=== PATIENT | female | born 1950 | race Caucasian/White ===

== ENCOUNTER 2022-06-04 14:54 | Outpatient (CLI) | payer MEDICARE, OTHER | END 2022-06-04 14:55 | disposition home or self-care (01) | LOC: BICRAD 14:54 | PROVIDERS: ATTEND Nurse Practitioner Family | DX: M25.551 Pain in right hip (principal); M16.11 Unilateral primary osteoarthritis, right hip ==

== ENCOUNTER 2022-08-13 14:59 | Outpatient (CLI) | payer MEDICARE, OTHER | END 2022-08-13 15:00 | disposition home or self-care (01) | LOC: BICRAD 14:59 | PROVIDERS: ATTEND Nurse Practitioner Family | DX: M79.641 Pain in right hand (principal); S62.660A Nondisplaced fracture of distal phalanx of right index finger, initial encounter for closed fracture ==